=== PATIENT | male | born 1995 | race Caucasian/White ===

== ENCOUNTER 2016-06-12 16:43 | Emergency (ER) | payer SELFPAY ==
[~2016-06-12] VITALS: Ht 175.3 cm; Wt 83.0 kg
[2016-06-12 16:57] VITALS: BP 122/64
[2016-06-12] MEDS ORDERED: DEXAMETHASONE SOD PHOSPHATE 10 MG/ML VIAL ONE (17:08)
[2016-06-12] MEDS ORDERED: PENICILLIN G BENZATHINE 2.4 MMU/4 ML ML IM ONE ×2 (17:08→17:30)
[2016-06-12] MEDS ORDERED: ACETAMINOPHEN ES 500 MG TABLET ONE (17:08)
[2016-06-12] MEDS ORDERED: ACETAMINOPHEN ES 500 MG TABLET PO ONE (17:30)
[2016-06-12] MEDS ORDERED: DEXAMETHASONE SOD PHOSPHATE 10 MG/ML VIAL IM ONE (17:30)
== END 2016-06-12 17:30 | disposition home or self-care (01) ==
LOC: ER 16:57
DX: J02.9 Acute pharyngitis, unspecified (principal)
CPT/HCPCS: 96372 ×2; 99284; A4606; J0558; J1100; Z7610

== ENCOUNTER 2016-07-25 12:28 | Emergency (ER) | payer SELFPAY ==
[~2016-07-25] VITALS: Ht 177.8 cm; Wt 83.9 kg
[2016-07-25 12:33] VITALS: BP 143/71
[2016-07-25] MEDS ORDERED: AZITHROMYCIN 250 MG TABLET PO ONE (13:00)
[2016-07-25] MEDS ORDERED: CEFTRIAXONE 500 MG VIAL IM ONE (13:00)
[2016-07-25] MEDS ORDERED: AZITHROMYCIN 250 MG TABLET ONE (13:06)
[2016-07-25] MEDS ORDERED: CEFTRIAXONE 500 MG VIAL ONE (13:06)
[2016-07-25] MEDS ORDERED: LIDOCAINE /MPF 1% VIAL 5 ML VIAL ONE (13:06)
[2016-07-25 13:09] LABS: APPEARANCE,URINE Clear (CLEAR); BILIRUBIN,URINE Negative (NEGATIVE); BLOOD, URINE Trace-intact Ery/uL (NEGATIVE); COLOR,URINE Yellow (YELLOW); KETONES,URINE Negative (NEGATIVE); LEUKOCYTE ESTERASE ,URINE Trace (NEGATIVE); NITRITE, URINE Negative (NEGATIVE); PROTEIN,URINE Trace mg/dl (NEGATIVE); UGLUCOSE Negative (NEGATIVE)
[2016-07-25 13:57] LABS: BACTERIA,URINE None seen /HPF (None Seen); RBC,URINE 0-2 /HPF (0-2); SQUAMOUS EPITHELIAL CELL,UR Rare /HPF (None Seen)
[2016-07-25 13:59] LABS: ADD URINE CULTURE NO
[2016-07-27 02:20] LABS: *NEISSERIA GONORRHOEAE NAA Negative (Negative); CHLAMYDIA TRACHOMATIS NAA Negative (Negative)
[2016-07-27 02:20] LABS: *NEISSERIA GONORRHOEAE NAA Negative (Negative); CHLAMYDIA TRACHOMATIS NAA Negative (Negative)
== END 2016-07-25 13:59 | disposition home or self-care (01) ==
LOC: ER 12:31
DX: N34.2 Other urethritis (principal)
CPT/HCPCS: 81001; 87491 ×2; 87591 ×2; 96372; 99284; A4606; J0696; J3490; Z7610; 81000-TC